=== PATIENT | male | born 1960 | race Caucasian/White ===

== ENCOUNTER 2022-03-18 07:52 | Outpatient (CLI) | payer OTHER ==
[~2022-03-18 07:52] MED LIST: LISINOPRIL10 MG; LISINOPRIL10 MG PO
== END 2022-03-18 08:02 | disposition home or self-care (01) ==
LOC: RAD 07:52
PROVIDERS: ATTEND Internal Medicine Pulmonary Disease
DX: R06.00 Dyspnea, unspecified (principal); J15.9 Unspecified bacterial pneumonia; J94.8 Other specified pleural conditions; R06.02 Shortness of breath; N39.0 Urinary tract infection, site not specified; N40.1 Benign prostatic hyperplasia with lower urinary tract symptoms; R31.9 Hematuria, unspecified; J45.901 Unspecified asthma with (acute) exacerbation